=== PATIENT | female | born 1970 | race Caucasian/White ===

== ENCOUNTER 2019-12-11 14:06 | Emergency (ER) | payer OTHER, SELFPAY ==
--- NOTE | ~2019-12-11 | XR_ITS ---
EXAMINATION: [id number] EXAM DATE: 12/11/2019 14:38 INDICATION: Initial encounter following injury, with pain of the left ribs. TECHNIQUE: Frontal projection of the upper left ribs, frontal projection of the lower left ribs, obli que projection of the left ribs, frontal chest x-ray(s) for interpretation. There is no prior study for comparison. FINDINGS: There are no displaced acute left rib fractures identified. There is no soft tissue abnor mality seen. Moderate chronic appearing hyperinflation. No confluent consolidation, pneumothorax or p leural effusion suspected. Right basilar granuloma. IMPRESSION: No displaced left rib fractures. Reviewed, dictated and finalized at [facility]
[2019-12-11 14:22] VITALS: BP 112/78; PULSE 90; RESP 18; TEMP 37.1; O2SAT 99
--- NOTE | 2019-12-11 14:29 | ED.BACK ---
HPI - Back Pain/Injury General Chief Complaint: Back Pain/Injury Stated Complaint: back pain Source: patient and RN notes reviewed Mode of arrival: ambulatory Limitations: no limitations History of Present Illness HPI Narrative: Patient is a 49-year-old female who presents complaining of thoracic back pain, left posterior rib pain after lifting a case of water bottles while at work. Patient reports feeling a pop. Patient reports increased pain with breathing and movement. She denies taking any [id number] medications prior to arrival. MD elicited complaint: back pain Related Data Allergies Allergy/AdvReac Type Severity Reaction Status Date / Time No Known Allergies Allergy Verified 12/11/19 14:12 Review of Systems Review of Systems: Narrative: CONSTITUTIONAL: Denies fever, chills, or sweats. EYES: Denies visual changes, redness, or discharge. ENT: Denies rhinorrhea, congestion, sore throat, or otalgia. CARDIOVASCULAR: Denies chest pain, palpitations, or edema. RESPIRATORY: Denies cough or dyspnea. GASTROINTESTINAL: Denies abdominal pain, nausea, vomiting, or diarrhea. GENITOURINARY: Denies dysuria or hematuria. SKIN: Denies rash or itching. MUSCULOSKELETAL: Reports left thoracic back pain, denies joint pain, or myalgia. NEUROLOGIC: Denies headache, numbness, dizziness, or weakness. PSYCHIATRIC: Denies anxiety or depression. [facility] Past Medical History Medical History Anemia Anxiety Back pain Depression Social History Social History (Updated 12/11/19 @ 14:33 by VALERI Rodríguez) Smoking status: Current every day smoker Tobacco type: cigarettes Alcohol intake: current Alcohol use details: Socially Substance use: never Occupation/Education: occupation Gender identity (if verbalized by the patient): Female Exam Narrative: Exam Narrative: GENERAL: Well-appearing, well-nourished, and in no acute distress. HEAD: Normocephalic, atraumatic. EYES: EOMI. No redness or drainage. Conjunctiva are normal. ENT: Mucous membranes pink and moist. CHEST: No respiratory distress. Clear to auscultation. HEART: Regular rate and rhythm. No murmur appreciated. Normal peripheral pulses. MUSCULOSKELETAL: Left thoracic paraspinal tenderness with palpation EXTREMITIES: Normal range of motion. No edema. SKIN: Warm, dry, no rash. NEURO: No focal deficits. Alert and oriented x3. Gait steady. PSYCH: Normal affect. No signs of depression or anxiety. Course Vital Signs Vital signs: Vital Signs Temperature 37.1 C 12/11/19 14:22 Pulse Rate 90 12/11/19 14:22 Respiratory Rate 18 12/11/19 14:22 Blood Pressure 112/78 12/11/19 14:22 Pulse Oximetry 99 12/11/19 14:22 Temperature 37.1 C 12/11/19 14:22 Pulse Rate 90 12/11/19 14:22 Respiratory Rate 18 12/11/19 14:22 Blood Pressure 112/78 12/11/19 14:22 Pulse Oximetry 99 12/11/19 14:22 MDM - Back Pain/Injury MDM Narrative Medical decision making narrative: X-ray shows no fracture. Discussed with patient the most likely cause of her pain is musculoskeletal. Discussed plan of care. Patient is stable for discharge home with outpatient follow-up as needed. Differential Diagnosis Differential diagnosis: Likely thoracic back pain Critical Care Time Critical Care Time Critical Care Time: No Discharge Plan Discharge Clinical Impression: Back pain, thoracic Patient Disposition: Home, Self-Care Condition: Stable Instructions: Back Pain (ED) Additional Instructions: You may take tylenol or ibuprofen for pain. Take muscle relaxer as directed. Follow up with your pcp in 3 to 5 days if symptoms persist, sooner if you experience an increase in pain or sob. Prescriptions: New ibuprofen [IBU] 600 mg tablet 600 mg PO TID PRN (Reason: pain) Qty: 20 RF: 0 cyclobenzaprine 10 mg tablet 10 mg PO TID PRN (Reason: muscle spasm) Qty: 14 RF: 0 Follow-up/Refer
[2019-12-11] MEDS: KETOROLAC 30 MG/ML VIAL (*BKC) IM (14:33)
== END 2019-12-11 14:55 | disposition home or self-care (01) ==
PROVIDERS: Emergency Provider Nurse Practitioner
DX: M54.6 Pain in thoracic spine (principal); F17.210 Nicotine dependence, cigarettes, uncomplicated
CPT/HCPCS: 71101; 96372; 99203; G0463; J1885

== ENCOUNTER 2021-04-02 18:28 | Emergency (ER) | payer SELFPAY ==
[2021-04-02 18:30] VITALS: BP 108/67; PULSE 82; RESP 20; TEMP 36.8; O2SAT 97
--- NOTE | 2021-04-02 19:27 | ED.BACK ---
HPI - Back Pain/Injury General Chief Complaint: Back Pain/Injury Stated Complaint: back pain Source: patient and RN notes reviewed Limitations: no limitations History of Present Illness HPI Narrative: The patient, a smoker/nondrinker on minimal medications yet without doctor, presents with side pain. Patient states she has a 1 week history of left low back and side pain that is mild, not related to motion and associated with urinary frequency/nocturia, and urgency. No recent injury ,fever, dysuria, hematuria, numbness/weakness, radiating pain, diarrhea, vomiting but she has been obstipated. Her past medical history is remarkable for kidney stones over a decade ago, required stenting. Screening urinalysis is noncontributory with trace leuk and heme. Patient advised go to higher level care facility for higher level testing which she declines tonight at this time but will go tomorrow. She notes associated very small maculopapular eruption on her left anterior superior iliac crest concurrent with the onset of the pain , it is 'bug bite pimply and not enlarging. Related Data Allergies Allergy/AdvReac Type Severity Reaction Status Date / Time codeine AdvReac Mild Nausea and Verified 04/02/21 19:51 Vomiting Review of Systems Review of Systems: Narrative: General/Constitutional: No weight loss,fever Eyes: N0: Redness,discharge Ears/Nose/Throat: No: Epistaxis,ear discharge Respiratory: Denies: Hemoptysis Gastrointestinal: No Vomiting, Bleeding-rectal Skin: No Lumps, REPORTS eruption Neurologic: No Focal Weakness,Sz Hematologic: Denies: Petechiae/Purpura Psychiatric: No: Suicida ideationl All Other Systems: Reviewed and Negative PMF Past Medical History Medical History (Updated 04/03/21 @ 00:01 by Orion Amor) Anemia Anxiety Back pain Depression Social History Social History (Updated 12/11/19 @ 14:33 by VALERI Rodríguez) Smoking status: Current every day smoker Tobacco type: cigarettes Alcohol intake: current Substance use: never Gender identity (if verbalized by the patient): Female Comments At time of signature, agree with nursing past medical, surgical, social and family history. There is no relevant family history pertinent to the presenting complaint Exam Narrative: Exam Narrative: General Appearance: Lean/thin appearing, Well nourished, Conjunctiva clear Mouth/Throat: Normal appearing, Normal lips Supple Respiratory: Airway patent Abdomen: Soft, mild left CVA and left lower quadrant tenderness, no suprapubic tenderness Musculoskeletal: Normal strength (no footdrop, 5/5 : EH L-FHL, gastroc-AT, no saddle weakness) Spine/Back: left Paraspinal muscle tender (with mild decreased range of motion) Skin: Normal color, anterior superior iliac crest with several discrete papulovesicular eruption Neurological: A&O x3, CN II-XII intact, Normal reflexes (symmetric, 2+ KJ, AJ) Psychiatric: Normal mood Course Vital Signs Vital signs: Vital Signs Temperature 98.2 F 04/02/21 18:30 Pulse Rate 82 04/02/21 18:30 Respiratory Rate 20 04/02/21 18:30 Blood Pressure 108/67 04/02/21 18:30 Pulse Oximetry 97 04/02/21 18:30 Temperature 98.2 F 04/02/21 18:30 Pulse Rate 82 04/02/21 18:30 Respiratory Rate 20 04/02/21 18:30 Blood Pressure 108/67 04/02/21 18:30 Pulse Oximetry 97 04/02/21 18:30 MDM - Back Pain/Injury Lab Data Labs: Urine Glucose Negative Reference Range: Negative Urine Bilirubin Negative Reference Range: Negative Urine Ketone Negative Reference Range: Negative Urine Specific Whitman 1.025 Reference Range:1.001-1.035 Urine Blood Trace
== END 2021-04-02 19:42 | disposition home or self-care (01) ==
PROVIDERS: Emergency Provider Emergency Medicine
DX: M54.5 Low back pain (principal); R10.9 Unspecified abdominal pain; F17.210 Nicotine dependence, cigarettes, uncomplicated
CPT/HCPCS: 81003; 87086; 99213; G0463

== ENCOUNTER → 2021-10-17 03:46 | Outpatient (CLI) | payer OTHER, SELFPAY ==
[2021-10-18 15:30] LABS: SARS-CoV-2 RNA PCR Negative (Negative)
== END ==
PROVIDERS: PCP Nurse Practitioner Family; Visit Provider Internal Medicine Gastroenterology
DX: Z01.812 Encounter for preprocedural laboratory examination (principal); Z20.822 Contact with and (suspected) exposure to COVID-19
CPT/HCPCS: C9803; U0003; U0005

== ENCOUNTER 2021-10-20 00:49 | Day surgery (SDC) | payer OTHER, SELFPAY ==
[2021-10-08 15:04] VITALS: BMI 18.9
--- NOTE | 2021-10-20 08:17 | WPDANESEPPF ---
Anes - Initial Pre Proc Eval Procedure: Operation Date: 10/20/21 11:00 Proposed Procedures p Screening Colonoscopy - Ankit Cornejo MD Date/Time: 10/20/21 08:17 Surgeon: Ankit Cornejo MD Pre Op Diagnosis: neoplasm screening Patient Data Age: 51 Gender: F Height: 1.63 m Weight: 50 kg Allergies Allergy/AdvReac Type Severity Reaction Status Date / Time codeine AdvReac Mild Nausea and Verified 10/20/21 10:03 Vomiting Home Medications Medication Instructions Recorded Confirmed Type cetirizine 10 mg tablet 10 mg PO DAILY PRN 10/01/21 10/20/21 History fluticasone propionate 50 1 spray INTRANASAL DAILY PRN 10/01/21 10/20/21 History mcg/actuation nasal spray,suspension amoxicillin 875 mg tablet 875 mg PO Q12H #20 tablet 10/06/21 10/20/21 Rx Patient hx anesthesia problems: none Family hx anesthesia problems: none Results Review: All pre-operative results and documents have been reviewed as part of the pre-operative evaluation. [facility] Past Medical History Medical History (Updated 08/06/21 @ 14:50 by Mary Jo Morton NP) Anemia Anxiety Back pain Cough Depression Encounter to establish care Injury of breast, left Right hand pain Screening for colorectal cancer Seasonal allergies Shortness of breath Tobacco abuse Surgical History Surgical History (Updated 08/06/21 @ 14:38 by Mary Jo Morton NP) History of renal stent Hx of breast implants, bilateral Hx of cholecystectomy Family History Family History (Updated 08/06/21 @ 13:39 by Jose Alfredo Blackwell CMA) Father Malignant neoplasm of prostate Diabetes mellitus Hypertension Heart disease Grandparent Bone cancer Heart disease Grandparent Malignant neoplasm of prostate Heart disease Social History Social History (Updated 10/01/21 @ 09:11 by Juana Mock MA) Smoking packs per day: 1 Smoking cigarettes per day: 20.0 Years smoked: 35 Smoking pack-years: 35.00 Smoking status: Current every day smoker Tobacco type: cigarettes Alcohol intake: former Alcohol use details: Socially Substance use: current Substance use type: marijuana Living arrangements: with family Gender identity (if verbalized by the patient): Female Spiritual care concerns: No Anes - Eval Final PreProcedure Day of Procedure 10/20/21 08:17 Patient weight: thin Heart: regular rate and rhythm Lungs: clear to auscultation and normal air movement Airway: Mallampati scale class II Neurological: alert and oriented Last oral intake: >/= 8 hours ASA classification: III Emergent: no Anesthetic plan: proceed Anesthesia type and monitoring: general GIVS and standard monitoring Results Review: All pre-operative results and documents have been reviewed as part of the pre-operative evaluation. Informed Consent: The patient's anesthetic plan and its attendant risks and benefits were discussed with the patient/family/POA. Questions were solicited and answers provided to the satisfaction of the patient/family/POA.
[2021-10-20 09:58] VITALS: BP 125/88; PULSE 88; RESP 16; TEMP 36.9; O2SAT 99; BMI 18.4
[2021-10-20] MEDS: LACTATED RINGERS 1,000 ML 150 ML IV CONT (10:12)
--- NOTE | 2021-10-20 10:41 | PM.HPGS ---
History of Present Illness History of Present Illness Consent: Risks, benefits, and alternatives have been discussed and questions answered. Patient agrees to proceed with procedure. Chief complaint: neoplasm screening Narrative: Adrianne Lomeli is a 51 year old female here for first screening colonoscopy Review of Systems Constitutional: Constitutional: Denies headache(s) and Denies weakness Eyes: Eyes: Denies blurry vision ENT: Reports Normal hearing present, Denies headache(s) and Denies neck pain Cardiovascular: Cardiovascular: Denies chest pain and Denies dyspnea Respiratory: Respiratory: Denies dyspnea Gastrointestinal: Gastrointestinal: Reports no additional gastrointestinal complaints Genitourinary: Genitourinary: Denies dysuria Musculoskeletal: Musculoskeletal: Denies neck pain Integumentary/Breasts: Skin/Breast: Denies dry skin Neurologic: Reports Normal hearing present, Denies headache(s) and Denies weakness Psychiatric: Psychiatric: Denies anxiety Endocrine: Endocrine: Denies change in body appearance Hematologic/Lymphatic: Hematologic/Lymphatic: Denies easy bleeding Allergic/Immunologic: Allergic/Immunologic: Denies urticaria PMFSH Past Medical History Medical History (Updated 08/06/21 @ 14:50 by Mary Jo Morton NP) Anemia Anxiety Back pain Cough Depression Encounter to establish care Injury of breast, left Right hand pain Screening for colorectal cancer Seasonal allergies Shortness of breath Tobacco abuse Surgical History Surgical History (Updated 08/06/21 @ 14:38 by Mary Jo Morton NP) History of renal stent Hx of breast implants, bilateral Hx of cholecystectomy Family History Family History (Updated 08/06/21 @ 13:39 by Jose Alfredo Blackwell CMA) Father Malignant neoplasm of prostate Diabetes mellitus Hypertension Heart disease Grandparent Bone cancer Heart disease Grandparent Malignant neoplasm of prostate Heart disease Social History Social History (Updated 10/01/21 @ 09:11 by Juana Mock MA) Smoking packs per day: 1 Smoking cigarettes per day: 20.0 Years smoked: 35 Smoking pack-years: 35.00 Smoking status: Current every day smoker Tobacco type: cigarettes Alcohol intake: former Alcohol use details: Socially Substance use: current Substance use type: marijuana Living arrangements: with family Gender identity (if verbalized by the patient): Female Spiritual care concerns: No Meds Home Medications and Allergies Home Medications Medication Instructions Recorded Confirmed Type cetirizine 10 mg tablet 10 mg PO DAILY PRN 10/01/21 10/20/21 History fluticasone propionate 50 1 spray INTRANASAL DAILY PRN 10/01/21 10/20/21 History mcg/actuation nasal spray,suspension amoxicillin 875 mg tablet 875 mg PO Q12H #20 tablet 10/06/21 10/20/21 Rx Allergies Allergy/AdvReac Type Severity Reaction Status Date / Time codeine AdvReac Mild Nausea and Verified 10/20/21 10:03 Vomiting Vital Signs Vital Signs - 24 hr 10/20/21 09:58 Temperature 98.4 F Pulse Rate 88 Respiratory Rate 16 Blood Pressure 125/88 Pulse Oximetry 99 Exam Const: General: comfortable and no acute distress HENMT: General nose exam: Normal nares present Eyes: General: appearance normal, both eyes and all related structures Neck: Neck: no JVD Resp: Auscultation: clear to auscultation bilaterally Cardio: Rate: regular rate Rhythm: regular rhythm GI: Inspection: non-distended GI Palp: Yes Soft to palpation Skin: General skin exam: normal color Neuro: General: gait normal Speech: normal speech Extrem: General: normal to inspection Psych: Mental Status: mental status grossly normal Assessment and Plan Assessment and plan (1) Screening for colorectal cancer: Code(s): Z12.11 - Encounter for screening for malignant neoplasm of colon; Z12.12 - Encounter for screening for malignant neoplasm of rectum Stat
[2021-10-20 11:03] VITALS: BP 101/86; PULSE 79; RESP 20; O2SAT 98
[2021-10-20 11:13] VITALS: BP 107/90; PULSE 106; RESP 20; O2SAT 99
[2021-10-20 11:23] VITALS: BP 97/78; PULSE 76; RESP 20; O2SAT 99
== END 2021-10-20 11:41 | disposition home or self-care (01) ==
PROVIDERS: PCP Nurse Practitioner Family; Visit Provider Internal Medicine Gastroenterology
PROC: 0DJD8ZZ Inspection of Lower Intestinal Tract, Via Natural or Artificial Opening Endoscopic (ICD-10-PCS; CPT 45378; principal; 2021-10-20 11:00)
DX: Z12.11 Encounter for screening for malignant neoplasm of colon (principal); D12.4 Benign neoplasm of descending colon; K57.30 Diverticulosis of large intestine without perforation or abscess without bleeding; F41.9 Anxiety disorder, unspecified; F32.A Depression, unspecified; F17.210 Nicotine dependence, cigarettes, uncomplicated; Z90.49 Acquired absence of other specified parts of digestive tract
CPT/HCPCS: 45385; 88305; J2704; J7120

== ENCOUNTER 2023-10-20 15:28 | Emergency (ER) | payer OTHER, SELFPAY | END 2023-10-20 15:32 | disposition left against medical advice (07) | PROVIDERS: Emergency Provider Nurse Practitioner; PCP Nurse Practitioner Family | DX: Z53.21 Procedure and treatment not carried out due to patient leaving prior to being seen by health care provider (principal) | CPT/HCPCS: 99199 ==